=== PATIENT | male | born 1975 | race Caucasian/White ===

== ENCOUNTER 2023-01-18 22:53 | Emergency (ER) | payer MEDICAID ==
[~2023-01-18] VITALS: Ht 170.2 cm; Wt 78.0 kg
[2023-01-18 23:17] VITALS: O2SAT 97
[2023-01-19] MEDS ORDERED: ACETAMINOPHEN 325MG TABLET PO ONE
[2023-01-19] MEDS ORDERED: KETOROLAC 60MG/2ML VIAL IM ONE
[2023-01-19 00:21] VITALS: BP 138/66; PULSE 87; RESP 16; TEMP 97.9
== END 2023-01-19 00:22 | disposition home or self-care (01) ==
LOC: ER 22:53
DX: R21 Rash and other nonspecific skin eruption (principal)
CPT/HCPCS: 99283; 96372; J1885